=== PATIENT | male | born 1995 | race Caucasian/White ===

== ENCOUNTER 2016-05-28 15:46 | Emergency (ER) | payer OTHER ==
[~2016-05-28] VITALS: Ht 182.9 cm; Wt 86.4 kg
[2016-05-28 15:48] VITALS: BP 158/79; PULSE 85; TEMP 97.3
[2016-05-28] MEDS ORDERED: ACNE MED PO (15:52)
== END 2016-05-28 18:10 | disposition home or self-care (01) ==
LOC: COL.ER 15:46
DX: R51 Headache (principal)